=== PATIENT | female | born 2000 | race Caucasian/White ===

== ENCOUNTER 2021-08-05 15:17 | Emergency (ER) | payer OTHER, MEDICAID ==
[~2021-08-05] VITALS: Ht 152.4 cm; Wt 65.8 kg
[2021-08-05 18:41] VITALS: BP 136/80
== END 2021-08-05 18:41 | disposition left against medical advice (07) ==
LOC: M.ERS 15:17
DX: Z53.21 Procedure and treatment not carried out due to patient leaving prior to being seen by health care provider (principal)